=== PATIENT | male | born 1990 | race Two or more races ===

== ENCOUNTER 2024-02-06 00:53 | Emergency (ER) | payer OTHER ==
[~2024-02-06] VITALS: Ht 165.1 cm; Wt 72.6 kg
[2024-02-06 00:54] VITALS: BP 136/93; PULSE 102; RESP 20; TEMP 98.2; O2SAT 98
[2024-02-06 01:10] VITALS: BP 136/93; PULSE 102; RESP 20; TEMP 98.2; O2SAT 98
== END 2024-02-06 01:10 ==
LOC: MED 00:53
DX: Z02.89 Encounter for other administrative examinations (principal); J45.909 Unspecified asthma, uncomplicated; V89.2XXA Person injured in unspecified motor-vehicle accident, traffic, initial encounter; Y93.89 Activity, other specified; Y92.89 Other specified places as the place of occurrence of the external cause; Y99.8 Other external cause status
CPT/HCPCS: 99283